=== PATIENT | female | born 1980 | race Two or more races ===

== ENCOUNTER 2020-01-01 13:30 | Observation (INO) | payer SELFPAY ==
[~2020-01-01] VITALS: Ht 160 cm; Wt 73.9 kg
[2020-01-01] MEDS ORDERED: PREN-96 PO (14:23)
== END 2020-01-01 14:20 | disposition home or self-care (01) | DRG 833 ==
LOC: LDRP 13:30 → EDBD 13:30
PROVIDERS: ADMIT Specialist; ATTEND Specialist
DX: O36.8120 Decreased fetal movements, second trimester, not applicable or unspecified (principal); Z3A.27 27 weeks gestation of pregnancy
CPT/HCPCS: 59025; 81002; G0378

== ENCOUNTER 2020-03-24 19:55 | Observation (INO) | payer MEDICAID ==
[~2020-03-24 19:55] MED LIST: PREN-96 PO
== END 2020-03-24 22:28 | disposition home or self-care (01) ==
LOC: LDRP 19:55
PROVIDERS: ADMIT Specialist; ATTEND Specialist
DX: O42.92 Full-term premature rupture of membranes, unspecified as to length of time between rupture and onset of labor (principal); O36.8130 Decreased fetal movements, third trimester, not applicable or unspecified; O62.9 Abnormality of forces of labor, unspecified; Z3A.39 39 weeks gestation of pregnancy
CPT/HCPCS: 59025; 76818; 81002; 84112; G0378; Q0114

== ENCOUNTER 2020-03-27 05:10 | Inpatient (IN) | payer MEDICAID ==
[~2020-03-27] VITALS: Ht 157.5 cm; Wt 67.1 kg
[2020-03-27] MEDS ORDERED: LIDOCAINE 2%HCL (LOCAL ANESTH.) INJ 20ML MDV IJ PRN (07:15)
[2020-03-27] MEDS ORDERED: LACT. RINGERS/OXYTOCIN 20UNITS 1,000 ML IV SCH (07:15)
[2020-03-27] MEDS ORDERED: PHISODERM TOP SOLN 240ML BTL TOP PRN (07:15)
[2020-03-27] MEDS ORDERED: DERMOPLAST 60ML BOTTLE TOP PRN (07:15)
[2020-03-27] MEDS ORDERED: BUTORPHANOL TARTRATE 2 MG/1 ML VIAL IV PRN ×2 (07:15)
[2020-03-27] MEDS ORDERED: PENICILLIN G POT 5MIL/D5 50ML 50 ML IV ONE (07:15)
[2020-03-27] MEDS ORDERED: WITCH HAZEL-GLYCERIN PAD TOP PRN (07:15)
[2020-03-27 07:49] LABS: Basophils # (auto) 0 10 ^3/uL (0-0.2); Basophils % (auto) 0.3 % (0.0-2.0); Eosinophils # (auto) 0 10 ^3/uL (0-0.8); Eosinophils % (auto) 0.2 % (0.0-7.0); Hematocrit 35.7 % (36.0-46.0); Hemoglobin 12.2 g/dL (12.2-16.2); Lymphocytes % (auto) 13.3 % (10.0-50.0); Mean Corpuscular Hemoglobin 29.8 pg (28.0-32.0); Mean Corpuscular Hgb Conc. 34.1 g/dL (32.0-36.0); Mean Corpuscular Volume 87.4 fL (80.0-100.0); Monocytes # (auto) 0.9 10 ^3/uL (0-1.3); Monocytes % (auto) 5.9 % (0.0-12.0); Neutrophils % (auto) 80.3 % (37.0-80.0); Platelet Count (auto) 173 10^3/uL (140-450); Red Blood Cells 4.09 10^6/uL (4.0-5.20); Red Cell Distribution Width 14.5 % (11.8-14.3)
[2020-03-27 07:52] LABS: Urine Bacteria NONE SEEN /hpf (None Seen); Urine Blood 1+ /uL (Negative); Urine Mucus FEW (None Seen); Urine Specific Gravity 1.018 (1.001-1.035); Urine WBC 4 /hpf (0 - 5)
[2020-03-27 08:02] LABS: INR 0.9 (0.9-1.15); Partial Thromboplastin Time 27.9 sec (23.0-31.2)
[2020-03-27 08:16] LABS: Albumin 2.6 g/dL (3.4-5.0); BUN/Creatinine Ratio 16.9; Calcium 8.7 mg/dL (8.5-10.1); Potassium 3.8 mmol/L (3.5-5.1)
[2020-03-27 08:17] LABS: Alcohol, Urine < 3.0 mg/dL (0-10); Amphetamine Screen, Urine NEGATIVE (NEGATIVE); Barbiturate Scree,Urine NEGATIVE (NEGATIVE); Benzodiazephine Screen, Urine NEGATIVE (NEGATIVE); Cannabinoid Screen, Urine NEGATIVE (NEGATIVE); Cocaine Screen, Urine NEGATIVE (NEGATIVE); Opiate Scree,Urine NEGATIVE (NEGATIVE); Phencyclidine Screen, Urine NEGATIVE (NEGATIVE)
[2020-03-27 08:19] LABS: Bilirubin, Total 0.2 mg/dL (0.2-1.0); Total Protein 6.6 g/dL (6.4-8.2)
[2020-03-27] MEDS: LACTATED RINGER'S 1,000 ML IV SCH ×2 (08:21→12:27)
[2020-03-27] MEDS ORDERED: TETRACAINE 1% INJ 2 ML VIAL IJ ONE (16:00)
[2020-03-27] MEDS ORDERED: ceFAZolin 1GM/50ML 50 ML IV ONE (16:12)
[2020-03-27] MEDS ORDERED: MORPHINE SULF INJ 2 MG/ML SYRINGE 1ML IV PRN (16:30)
[2020-03-27] MEDS ORDERED: ceFAZolin 1GM/50ML 50 ML IV SCH (16:30)
[2020-03-27] MEDS ORDERED: LACT. RINGERS/OXYTOCIN 20UNITS 1,000 ML IV ONE (16:30)
[2020-03-27] MEDS ORDERED: ONDANSETRON HCL 4 MG/2 ML VIAL IV PRN ×3 (16:30→17:30)
[2020-03-27] MEDS ORDERED: KETOROLAC TROMETH 30 MG/ML 1ML VIAL IV PRN (17:30)
[2020-03-27] MEDS ORDERED: diphenhdrAMINE HCL 50 MG/1 ML VL IV PRN (17:30)
[2020-03-27] MEDS ORDERED: METOCLOPRAMIDE HCL 5MG/ml INJ 2ml VIAL IV PRN (17:30)
[2020-03-27] MEDS ORDERED: NALOXONE HCL 0.4 MG/ML VIAL IV PRN ×2 (17:30)
[2020-03-27] MEDS ORDERED: HYDROmorphone HCL 2 MG/ML VL IV PRN (17:30)
[2020-03-27 18:30] VITALS: BP 106/63
[2020-03-27] MEDS ORDERED: ACETAMINOPHEN IV 1000 MG/100ML (10MG/ML) IV ONE (21:00)
[2020-03-27 21:18] LABS: Basophils # (auto) 0 10 ^3/uL (0-0.2); Basophils % (auto) 0.1 % (0.0-2.0); Eosinophils # (auto) 0 10 ^3/uL (0-0.8); Hemoglobin 11.6 g/dL (12.2-16.2); Lymphocytes # (auto) 1.1 10 ^3/uL (0.4-5.4); Lymphocytes % (auto) 4.3 % (10.0-50.0); Mean Corpuscular Hemoglobin 29.1 pg (28.0-32.0); Mean Corpuscular Volume 88.1 fL (80.0-100.0); Monocytes # (auto) 1.2 10 ^3/uL (0-1.3); Neutrophils # (auto) 22.4 10 ^3/uL (1.6-8.6); Neutrophils % (auto) 90.6 % (37.0-80.0); Nucleated Red Blood Cells % 0.1 %; Platelet Count (auto) 173 10^3/uL (140-450); Red Blood Cells 3.98 10^6/uL (4.0-5.20); Red Cell Distribution Width 14.5 % (11.8-14.3); White Blood Cell 24.8 10^3/uL (4.4-10.8)
[2020-03-27 23:00] VITALS: BP 105/71
[2020-03-28] MEDS: ceFAZolin 1GM/50ML 50 ML IV SCH ×3 (00:33→16:21)
[2020-03-28 03:30] VITALS: BP 102/64
[2020-03-28] MEDS: MORPHINE SULF INJ 2 MG/ML SYRINGE 1ML IV PRN ×2 (05:43→10:15)
[2020-03-28 06:06] LABS: RPR Non Reactive (Non Reactive)
[2020-03-28 07:07] LABS: Basophils # (auto) 0 10 ^3/uL (0-0.2); Basophils % (auto) 0.2 % (0.0-2.0); Eosinophils # (auto) 0 10 ^3/uL (0-0.8); Eosinophils % (auto) 0.1 % (0.0-7.0); Hematocrit 31.4 % (36.0-46.0); Hemoglobin 10.7 g/dL (12.2-16.2); Lymphocytes # (auto) 1.9 10 ^3/uL (0.4-5.4); Lymphocytes % (auto) 9.9 % (10.0-50.0); Mean Corpuscular Hemoglobin 29.9 pg (28.0-32.0); Mean Corpuscular Hgb Conc. 34.1 g/dL (32.0-36.0); Mean Corpuscular Volume 87.4 fL (80.0-100.0); Monocytes % (auto) 4.9 % (0.0-12.0); Neutrophils # (auto) 16.7 10 ^3/uL (1.6-8.6); Neutrophils % (auto) 84.9 % (37.0-80.0); Platelet Count (auto) 159 10^3/uL (140-450); Red Cell Distribution Width 14.9 % (11.8-14.3); White Blood Cell 19.7 10^3/uL (4.4-10.8)
[2020-03-28 07:15] VITALS: BP 109/67
[2020-03-28 10:30] VITALS: BP 106/61
[2020-03-28] MEDS ORDERED: BISACODYL 10 MG RECT SUPP PR PRN (14:30)
[2020-03-28] MEDS ORDERED: HYDROcodone-ACET 5/325MG TAB PO PRN (14:30)
[2020-03-28 15:00] VITALS: BP 107/70
[2020-03-28] MEDS: HYDROcodone-ACET 5/325MG TAB PO PRN (16:19)
[2020-03-28] MEDS: SIMETHICONE 80 MG CHEWABLE TABLET PO SCH ×2 (17:58→22:42)
[2020-03-28 19:12] VITALS: BP 111/68
[2020-03-28] MEDS: IBUPROFEN 800 MG TAB PO PRN (20:21)
[2020-03-28] MEDS ORDERED: DOCUSATE SOD 100 MG CAP PO SCH (22:00)
[2020-03-28 23:00] VITALS: BP 105/61
[2020-03-29] VITALS (7 sets, daily range): BP systolic 106–125; BP diastolic 56–75
[2020-03-29] MEDS: IBUPROFEN 800 MG TAB PO PRN ×2 (05:35→17:55)
[2020-03-29] MEDS: SIMETHICONE 80 MG CHEWABLE TABLET PO SCH ×3 (05:35→21:41)
[2020-03-29] MEDS ORDERED: DOCUSATE CALCIUM 240 MG CAP PO SCH (10:00)
[2020-03-29] MEDS: HYDROcodone-ACET 5/325MG TAB PO PRN (15:10)
[2020-03-30 03:24] VITALS: BP 109/63
[2020-03-30] MEDS: SIMETHICONE 80 MG CHEWABLE TABLET PO SCH ×2 (03:45→06:00)
[2020-03-30] MEDS: IBUPROFEN 800 MG TAB PO PRN (03:48)
[2020-03-30] MEDS ORDERED: TETANUS-DIPTH-ACEL PERTUSSIS 0.5ML SYR Tdap IM ONE (04:15)
== END 2020-03-30 09:41 | disposition home or self-care (01) | DRG 540 ==
LOC: LDRP 05:10 → OBSVTOIN 07:18 → LDRP 07:19
PROVIDERS: ADMIT Specialist; ATTEND Specialist
PROC: 10D00Z1 Extraction of Products of Conception, Low, Open Approach (ICD-10-PCS; principal; 2020-03-27 16:02)
DX: O62.2 Other uterine inertia (principal); O99.213 Obesity complicating pregnancy, third trimester; E66.9 Obesity, unspecified; Z37.0 Single live birth; Z3A.40 40 weeks gestation of pregnancy
CPT/HCPCS: 36415; 59025; 80053; 80307; 81001; 81002; 85025; 85610; 85730; 86592; 86850; 86900; 86901; 90715; 94762; 96360; 96361; 96374; 96375; G0378; J0131; J0690; J2405; J2590